=== PATIENT | male | born 1995 | race Caucasian/White ===

== ENCOUNTER 2021-04-03 18:51 | Emergency (ER) | payer BC, SELFPAY ==
--- OUTSIDE RECORDS SUMMARY | 2021-04-03 18:54 | XMS REPORT | Continuity of Care Document ---
:1995 Author Organization [facility] t Address [address] [place] [address] Care Team Providers Name Role Phone 2, Lab Attending Clinician Unavailable Hector CUEVAS, Royce Attending Clinician Problems This patient has no known problems. Allergies, Adverse Reactions, Alerts This patient has no known allergies or adverse reactions. Medications This patient has no known medications. Procedures This patient has no known procedures. Encounters Start End Encounter Admission Attending Care Care Encounter Source Date/Time Date/Time Type Type Clinicians Facility Department ID 2020-04-02 2020-04-02 Personal Assistant 2, Adc Lab [facility] [id number] 14:01:55 14:16:55 Visit [place] [id number] [place] [id number] Professio [phone] nal [address] 2020-03-29 2020-03-29 Telemedici [facility] [id number] 08:00:53 08:15:53 ne Visit [place] [id number] mikal [place] [id number] Profess[facility] [phone] nal [address] [place] [address] Results This patient has no known results.
--- NOTE | 2021-04-03 19:41 | RAD REPORT ---
EXAM DESCRIPTION: RAD - Hand Left 3 View - 04/03/2021 7:28 pm CLINICAL HISTORY: laceration;Pain COMPARISON: No comparisons FINDINGS: Soft tissue swelling affects the third finger. No fracture or radiopaque foreign body.
[2021-04-03] MEDS ORDERED: IBUPROFEN 400 MG TAB ONE (21:23)
[2021-04-03] MEDS ORDERED: LIDOCAINE 1% 20 ML MDV ONE (22:52)
--- NOTE | 2021-04-03 23:28 | EDPHYS ---
Physician Documentation [facility] Name: Jeffy Perez Jr Age: 25 yrs Sex: Male : 1995 Arrival Date: 04/03/2021 Time: 18:53 Bed 12 Private MD: ED Physician Jann Peralta HPI: 04/03 23:16 This 25 yrs old Male presents to ER via Ambulatory with complaints of pkl Laceration To Hand. 23:16 The patient or guardian reports injury, a laceration, complex, 5 cm(s), pain. The pkl complaints affect the Extensor aspect middle phalanx left hand. Onset: The symptoms/episode began/occurred just prior to arrival, 4 hour(s) ago. The patient has a laceration related to: cut by chain saw. Historical: - Allergies: 18:54 No Known Allergies; sv - PMHx: 18:54 None; sv - Immunization history:: Client reports having NOT received the Covid vaccine. - Social history:: Smoking status: Patient denies any tobacco usage or history of. ROS: 23:16 Eyes: Negative for injury, pain, redness, and discharge, ENT: Negative for injury, pkl pain, and discharge, Neck: Negative for injury, pain, and swelling, Cardiovascular: Negative for chest pain, palpitations, and edema, Respiratory: Negative for shortness of breath, cough, wheezing, and pleuritic chest pain, Abdomen/GI: Negative for abdominal pain, nausea, vomiting, diarrhea, and constipation, Back: Negative for injury and pain, : Negative for injury, bleeding, discharge, and swelling, Neuro: Negative for headache, weakness, numbness, tingling, and seizure. 23:16 MS/extremity: Positive for laceration, of the left middle finger. Exam: 23:16 Head/Face: Normocephalic, atraumatic. Eyes: Pupils equal round and reactive to light, pkl extra-ocular motions intact. Lids and lashes normal. Conjunctiva and sclera are non-icteric and not injected. Cornea within normal limits. Periorbital areas with no swelling, redness, or edema. ENT: Nares patent. No nasal discharge, no septal abnormalities noted. Tympanic membranes are normal and external auditory canals are clear. Oropharynx with no redness, swelling, or masses, exudates, or evidence of obstruction, uvula midline. Mucous membranes moist. Neck: Trachea midline, no thyromegaly or masses palpated, and no cervical lymphadenopathy. Supple, full range of motion without nuchal rigidity, or vertebral point tenderness. No Meningismus. Chest/axilla: Normal chest wall appearance and motion. Nontender with no deformity. No lesions are appreciated. Cardiovascular: Regular rate and rhythm with a normal S1 and S2. No gallops, murmurs, or rubs. Normal PMI, no JVD. No pulse deficits. Respiratory: Lungs have equal breath sounds bilaterally, clear to auscultation and percussion. No rales, rhonchi or wheezes noted. No increased work of breathing, no retractions or nasal flaring. Abdomen/GI: Soft, non-tender, with normal bowel sounds. No distension or tympany. No guarding or rebound. No evidence of tenderness throughout. Back: No spinal tenderness. No costovertebral tenderness. Full range of motion. Neuro: Awake and alert, GCS 15, oriented to person, place, time, and situation. Cranial nerves II-XII grossly intact. Motor strength 5/5 in all extremities. Sensory grossly intact. Cerebellar exam normal. Normal gait. 23:16 Musculoskeletal/extremity: Extremities: grossly normal except: noted in the extensor aspect middle phalanx left hand: laceration, numbness left middle finger distal to laceration, extensor tendon partially lacerated.. Vital Signs: 18:54 BP 131 / 79; Pulse 89; Resp 16; Temp 98.2; Pulse Ox 99% ; Weight 99.79 kg; Height 5 ft. sv 8 in. (172.72 cm); 21:51 BP 142 / 95; Pulse 84; Resp 16; Pulse Ox 98% on R/A; tt3 23:38 BP 129 / 94; Pulse 87; Resp 16 S; Pulse Ox 100% on R/A; Pain 6/10; bb 23:44 BP 136 / 81; Pulse 75; Resp 18; Pulse Ox 98% on R/A; dh4 18:54 Body Mass Index 33.45 (99.79 kg, 172.72 cm) sv MDM: 21:47 Patient medically screened. pk 23:03 Data reviewed: vital signs, nurses notes, radiologic studies, plain films. ED course: luna talked to Dr. Smith. will do outpatient surgery tomorrow. 23:16 ED course: Talked to Dr. Smith, will do outpatient surgery tomorrow. NPO after pkl midnight. Patient understood instructions. 04/03 19:00 Order name: Hand Left 3 View XRAY; Complete Time: 23:06 sv Administered Medications: 21:00 Drug: Ibuprofen 800 mg Route: PO; kg 23:34 Follow up: Response: No adverse reaction bb 23:15 Drug: Ancef (cefazolin) 1 grams Route: IVPB; Site: right antecubital; bb 23:21 Follow up: IV Status: Completed infusion; IV Intake: 10ml bb 23:16 Drug: morphine 4 mg Route: IVP; Site: right antecubital; bb 23:34 Follow up: Response: No adverse reaction; Pain is decreased; RASS: Alert and Calm (0) bb 23:18 Drug: Zofran (Ondansetron) 4 mg Route: IVP; Site: right antecubital; bb 23:34 Follow up: Response: No adverse reaction bb Disposition Summary: 04/03/21 23:28 Discharge Ordered Location: Home pkl Problem: new pkl Symptoms: are unchanged pkl Condition: Stable pkl Diagnosis - Partial extensor tendon laceration and digital nerves lacertions left pkl middle finger Followup: pkl - With: Bennie Guevara MD - When: Tomorrow - Reason: Re-evaluation by your physician Discharge Instructions: - Discharge Summary Sheet pkl Forms: - Medication Reconciliation Form pkl - Thank You Letter pkl - Antibiotic Education pkl - Prescription Opioid Use pkl Prescriptions: - Cephalexin 500 mg Oral Capsule - take 1 capsule by ORAL route every 6 hours for 10 days; 40 capsule; Refills: 0, pkl Product Selection Permitted - Tramadol 50 mg Oral Tablet - take 1 tablet by ORAL route every 8 hours as needed; 12 tablet; Refills: 0, pkl Product Selection Permitted Signatures: Dispatcher [employer] Florence Lim RN RN sv Lam, Pin, MD MD pkSaba Wray RN RN bb Graham, Kristen, RN RN kg
--- NOTE | 2021-04-03 23:28 | ER ---
Nurse's Notes [facility] Name: Jeffy Perez Jr Age: 25 yrs Sex: Male : 1995 Arrival Date: 04/03/2021 Time: 18:53 Bed 12 Private MD: Diagnosis: Partial extensor tendon laceration and digital nerves lacertions left middle finger Presentation: 04/03 18:53 Chief complaint: Patient states: left 4th digit laceration with a chain saw, occurred sv about 10 mins ago. Coronavirus screen: Client denies travel out of the [place] in the last 14 days. At this time, the client does not indicate any symptoms associated with coronavirus-19. Ebola Screen: No symptoms or risks identified at this time. Risk Assessment: Do you want to hurt yourself or someone else? Patient reports no desire to harm self or others. Onset of symptoms was April 03, 2021. 18:53 Method Of Arrival: Ambulatory sv 18:53 Acuity: GUS 3 sv 18:54 Complicating Factors: There are no complicating factors for this patient. sv 18:54 Initial Sepsis Screen: Does the patient meet any 2 criteria? No. Patient's initial sv sepsis screen is negative. Does the patient have a suspected source of infection? No. Patient's initial sepsis screen is negative. Triage Assessment: 18:54 General: Appears in no apparent distress. uncomfortable, Behavior is calm, cooperative, sv appropriate for age. Pain: Complains of pain in left ring finger. Neuro: Level of Consciousness is awake, alert, obeys commands, Gait is steady. Respiratory: Respiratory effort is even, unlabored. Injury Description: Laceration sustained to left ring finger. Historical: - Allergies: 18:54 No Known Allergies; sv - PMHx: 18:54 None; sv - Immunization history:: Client reports having NOT received the Covid vaccine. - Social history:: Smoking status: Patient denies any tobacco usage or history of. Screenin:00 Abuse screen: Denies threats or abuse. Nutritional screening: No deficits noted. bb Tuberculosis screening: No symptoms or risk factors identified. Fall Risk None identified. Assessment: 19:00 Reassessment: Received VO for xray from Dr Mann. sv 23:00 Reassessment: Patient is alert, oriented x 3, equal unlabored respirations, skin bb warm/dry/pink. Musculoskeletal: laceration to left middle finger with suture line intact well approximated covered with a non-adherant pad and kerlix. Vital Signs: 18:54 BP 131 / 79; Pulse 89; Resp 16; Temp 98.2; Pulse Ox 99% ; Weight 99.79 kg; Height 5 ft. sv 8 in. (172.72 cm); 21:51 BP 142 / 95; Pulse 84; Resp 16; Pulse Ox 98% on R/A; tt3 23:38 BP 129 / 94; Pulse 87; Resp 16 S; Pulse Ox 100% on R/A; Pain 6/10; bb 23:44 BP 136 / 81; Pulse 75; Resp 18; Pulse Ox 98% on R/A; dh4 18:54 Body Mass Index 33.45 (99.79 kg, 172.72 cm) sv ED Course: 18:53 Patient arrived in ED. sv 18:54 Triage completed. sv 18:54 Arm band placed on. sv 19:28 Hand Left 3 View XRAY In Process Unspecified. EDMS 21:47 Jann Peralta MD is Attending Physician. pkl 23:00 Patient has correct armband on for positive identification. bb 23:00 Inserted saline lock: 18 gauge in right antecubital area, using aseptic technique. bb 23:26 Bennie Guevara MD is Referral Physician. pkl 23:38 Dressings: Adaptic X 1; Left Middle Finger Kerlix X 2; left hand/ Left Middle Finger jp3 non-adherent dressing x 1 Left Middle Finger. Aluminum finger splint applied to Left Middle Finger. 23:50 Assist provider with laceration repair on left middle finger that was between 2.6 to bb 7.5 cm using sutures. Set up tray. Performed by Jann Peralta MD. IV discontinued, intact, bleeding controlled, No redness/swelling at site. Pressure dressing applied. Administered Medications: 21:00 Drug: Ibuprofen 800 mg Route: PO; kg 23:34 Follow up: Response: No adverse reaction bb 23:15 Drug: Ancef (cefazolin) 1 grams Route: IVPB; Site: right antecubital; bb 23:21 Follow up: IV Status: Completed infusion; IV Intake: 10ml bb 23:16 Drug: morphine 4 mg Route: IVP; Site: right antecubital; bb 23:34 Follow up: Response: No adverse reaction; Pain is decreased; RASS: Alert and Calm (0) bb 23:18 Drug: Zofran (Ondansetron) 4 mg Route: IVP; Site: right antecubital; bb 23:34 Follow up: Response: No adverse reaction bb Intake: 23:21 IV: 10ml; Total: 10ml. bb Outcome: 23:28 Discharge ordered by . pksophy 23:51 Discharged to home ambulatory, with family. bb 23:51 Condition: stable 23:51 Discharge instructions given to patient, Instructed on discharge instructions, follow up and referral plans. medication usage, Demonstrated understanding of instructions, follow-up care, medications, Prescriptions given X 2. 23:52 Patient left the ED. bb Signatures: Dispatcher [employer] EDMS Florence Lopez, RN RN Jann Martinez MD MD pkl Ballard, Brenda, RN RN Chencho Moreland jp3 Iain Melendez 4 Xavier Dunbar 3 Maricarmen Sal RN RN kg Corrections: (The following items were deleted from the chart) 18:55 18:54 99.79 kg; Height 5 ft. 8 in.; BMI: 33.4; [facility]
[2021-04-03] MEDS ORDERED: CEFAZOLIN/SWI 1gm 1 GM/10 ML SYR ONE (23:38)
[2021-04-03] MEDS ORDERED: MORPHINE 4 MG/ML SYR ONE (23:38)
[2021-04-03] MEDS ORDERED: ONDANSETRON 4 MG/2 ML VIAL ONE (23:38)
[2021-04-03 23:57] VITALS: TEMP 98.2
[2021-04-04 00:03] VITALS: BP 136/81; O2SAT 98
== END 2021-04-03 23:52 | disposition home or self-care (01) ==
LOC: ER 18:51
DX: S66.323A Laceration of extensor muscle, fascia and tendon of left middle finger at wrist and hand level, initial encounter (principal); W29.3XXA Contact with powered garden and outdoor hand tools and machinery, initial encounter
CPT/HCPCS: 96374; 96375; 99284; J0690; J2405

== ENCOUNTER 2021-04-04 13:09 | Day surgery (SDC) | payer OTHER, SELFPAY ==
[2021-04-04] MEDS ORDERED: Ringers Lactate 1,000 ML IV ONE ×2 (13:53→16:06)
[2021-04-04] MEDS ORDERED: CEFAZOLIN/SWI 1gm 1 GM/10 ML SYR ONE (13:56)
[2021-04-04] MEDS ORDERED: NS 0.9% VIAL 10 ML ONE (14:20)
[2021-04-04] MEDS ORDERED: LIDOCAINE 1% MPF 5 ML VIAL ONE (14:20)
[2021-04-04] MEDS ORDERED: FENTANYL CITR 100 MCG/2 ML ONE (14:21)
[2021-04-04] MEDS ORDERED: MIDAZOLAM HCL 2 MG/2 ML INJ ONE (14:21)
[2021-04-04] MEDS ORDERED: dexAMETHasone 10 MG/ML VIAL ONE ×2 (14:21→15:35)
[2021-04-04] MEDS ORDERED: ROPLVACAINE HCL 40 ML ONE (14:22)
[2021-04-04] MEDS ORDERED: propofoL 200 MG/20 ML VIAL IV ONE (14:49)
[2021-04-04] MEDS ORDERED: LIDOCAINE 2% MPF 5 ML VIAL ONE (14:50)
[2021-04-04] MEDS ORDERED: KETOROLAC 30 MG/ML INJ ONE (15:05)
[2021-04-04] MEDS ORDERED: HYDROMORPHONE HCL 1 MG/ML INJ ONE (15:32)
[2021-04-04] MEDS ORDERED: BUPIVACAINE 0.5% PF 10 ML VIAL ONE (15:35)
[2021-04-04] MEDS ORDERED: ONDANSETRON 4 MG/2 ML VIAL ONE (15:59)
[2021-04-04] MEDS ORDERED: MEPERIDINE HCL 25 MG/ML SYR ONE (16:07)
[2021-04-04 16:59] VITALS: BP 139/72; TEMP 96.8; O2SAT 99
[2021-04-04] MEDS ORDERED: CODEINE 30MG/APAP 300MG TAB ONE (17:02)
--- NOTE | 2021-04-05 01:32 | OP ---
Surgeon: Bennie Guevara MD Preoperative Diagnosis: Open wound, left middle finger. Postoperative Diagnosis: Open wound, left middle finger with laceration of the middle phalanges. Procedure Performed: Debridement of skin, subcutaneous tissue and bone, flap closure, splint. Anesthesia: General. Procedure In Detail: After satisfactory induction of general anesthesia, left hand was prepped with Betadine scrub, Betadine paint, dry sterile drapes were applied in the usual manner. Arm was elevate d. Exsanguinated with Esmarch. Tourniquet was inflated to 250 mmHg. Hand was placed on roll lock t able. Multiple lacerations were debrided. After sutures were removed, the patient had an oblique la ceration over the dorsal surface of the middle phalanx of the left middle finger, extended proximally and distally. Dissection was proceeded down. The extensor mechanism was intact however t he central slip over bone distal to that a triangular defect consistent with wa s missing. The bone was curetted and jet lavage irrigated with 3 L of Betadine solution. Tourniquet was released. Electrocautery was used for hemostasis. Wound was closed with 4-0 Prolene, vertical mattress, half buried mattress after flap was advanced and closure. Dressed with Xeroform, 2-inch Kl ing, and a splint holding the PIP and DIP in extension. The patient tolerated procedure well and ret urned to recovery. VIDYA/DAVEY Voice ID: [id number] Report ID: [id number]
== END 2021-04-04 16:52 | disposition home or self-care (01) ==
LOC: OR 13:09
PROVIDERS: ATTEND Specialist
PROC: 0PBV0ZZ Excision of Left Finger Phalanx, Open Approach (ICD-10-PCS; 2021-04-04)
PROC: 0PDV0ZZ Extraction of Left Finger Phalanx, Open Approach (ICD-10-PCS; 2021-04-04)
PROC: 0HXGXZZ Transfer Left Hand Skin, External Approach (ICD-10-PCS; principal; 2021-04-04 14:15)
DX: S61.203A Unspecified open wound of left middle finger without damage to nail, initial encounter (principal); Z20.822 Contact with and (suspected) exposure to COVID-19
CPT/HCPCS: 88304; 14040; 11044; U0003; J2704; J2250; J3010; J1100 ×2; J2175; J2795; J0690; J7120 ×2; J2405; 88311; J1170